=== PATIENT | female | born 1960 | race Two or more races ===

== ENCOUNTER 2019-06-13 05:08 | Emergency (ER) | payer MEDICAID ==
[~2019-06-13] VITALS: Ht 157.5 cm; Wt 58.1 kg
--- NOTE | 2019-06-13 05:55 | NUR ---
Note [email or web address] in EDM - 06/13/19 at 0612 by NATALIE Patient discharged to home in stable conditon. Written and verbal after care instructions given. Patient verbalizes understanding of instructions. Pt left ER in stable gait with CAM walking boot. Discontinue crutches per Dr. Bahena. No acute distress noted. Vital signs stable.
[2019-06-13 05:56] VITALS: BP 104/54
--- NOTE | 2019-06-13 05:56 | NUR ---
Patient given written and verbal discharge instructions. Patient verbalizes understanding of instructions. Patient is ambulatory with steady gait. Refuses offer of intermediate placement. Patient given list of available shelters in surrounding area.
--- NOTE | 2019-06-13 05:57 | NUR ---
Placed CAM walker on pt's right foot, walked out of ER in stable gait. Discontinue crutches per Dr. Bahena. No acute distress noted. Vital signs stable.
== END 2019-06-13 05:58 | disposition home or self-care (01) ==
LOC: ER 05:09
DX: S90.31XA Contusion of right foot, initial encounter (principal); X58.XXXA Exposure to other specified factors, initial encounter; Y93.89 Activity, other specified; Y92.89 Other specified places as the place of occurrence of the external cause; Y99.8 Other external cause status
CPT/HCPCS: 73610; 73630; A4663

== ENCOUNTER 2021-02-12 02:25 | Emergency (ER) | payer MEDICAID ==
[~2021-02-12] VITALS: Ht 157.5 cm; Wt 56.2 kg
[2021-02-12] MEDS ORDERED: HYDR-4209 PO (02:56)
[2021-02-12] MEDS ORDERED: IBUP-1955 PO (02:56)
[2021-02-12] MEDS ORDERED: IBUPROFEN 600 MG TABLET PO ONE (03:00)
[2021-02-12] MEDS ORDERED: IBUPROFEN 600 MG TABLET ONE (03:00)
--- NOTE | 2021-02-12 03:16 | NUR ---
Crutches dispensed. Pt instructed on proper use of crutches. Patient able to demonstrate correct use of crutches.
[2021-02-12 03:26] VITALS: BP 115/47
--- NOTE | 2021-02-12 03:26 | NUR ---
Patient given written and verbal discharge instructions. Patient verbalizes understanding of instructions. Patient is ambulatory with steady gait. Refuses offer of longterm placement. Patient given list of available shelters in surrounding area.
== END 2021-02-12 03:27 | disposition home or self-care (01) ==
LOC: ER 02:31
DX: S83.92XA Sprain of unspecified site of left knee, initial encounter (principal); M25.532 Pain in left wrist; X50.9XXA Other and unspecified overexertion or strenuous movements or postures, initial encounter; Y93.01 Activity, walking, marching and hiking; Y92.834 Zoological garden (Zoo) as the place of occurrence of the external cause; T14.90XS Injury, unspecified, sequela; M25.512 Pain in left shoulder; V86.99XS Unspecified occupant of other special all-terrain or other off-road motor vehicle injured in nontraffic accident, sequela; Z59.0 Homelessness
CPT/HCPCS: 73110; A4663